=== PATIENT | male | born 1960 | race African-American/Black ===

== ENCOUNTER 2017-04-26 09:27 | Emergency (ER) | payer OTHER ==
[~2017-04-26] VITALS: Ht 175.3 cm; Wt 91.8 kg
[2017-04-26 09:28] VITALS: BP 118/78
[2017-04-26] MEDS ORDERED: diabetes med (09:57)
== END 2017-04-26 10:52 | disposition home or self-care (01) ==
LOC: ED 10:49
DX: J20.9 Acute bronchitis, unspecified (principal)
CPT/HCPCS: 71020; 99284

== ENCOUNTER 2018-06-15 08:19 | Emergency (ER) | payer OTHER ==
[~2018-06-15] VITALS: Ht 177.8 cm; Wt 88.0 kg
[~2018-06-15 08:19] MED LIST: diabetes med
[2018-06-15] MEDS ORDERED: OXYcodone/APAP 5/325MG TABLET ONE (08:55)
[2018-06-15] MEDS ORDERED: OXYcodone/APAP 5/325MG TABLET PO ONE (09:00)
[2018-06-15 10:09] VITALS: BP 134/81
== END 2018-06-15 10:12 | disposition home or self-care (01) ==
LOC: ED 09:45
DX: G89.11 Acute pain due to trauma (principal); N48.89 Other specified disorders of penis; Z85.46 Personal history of malignant neoplasm of prostate; F17.200 Nicotine dependence, unspecified, uncomplicated
CPT/HCPCS: 76870; 93975; 99284

== ENCOUNTER 2018-10-08 09:18 | Emergency (ER) | payer SELFPAY ==
[~2018-10-08] VITALS: Ht 175.3 cm; Wt 99.0 kg
[2018-10-08] MEDS ORDERED: KETOROLAC 30 MG/1 ML ONE (10:41)
[2018-10-08] MEDS ORDERED: KETOROLAC 30 MG/1 ML IM ONE (11:00)
--- NOTE | 2018-10-08 12:30 | NUR ---
PT BACK FROM MRI AND REPORTS PAIN IS MUCH BETTER AFTER TORADOL.
[2018-10-08 12:53] VITALS: BP 126/82
== END 2018-10-08 14:12 | disposition home or self-care (01) ==
LOC: ED 10:17
DX: S59.902A Unspecified injury of left elbow, initial encounter (principal); Z87.891 Personal history of nicotine dependence; W01.0XXA Fall on same level from slipping, tripping and stumbling without subsequent striking against object, initial encounter; Y93.89 Activity, other specified; Y92.89 Other specified places as the place of occurrence of the external cause; Y99.8 Other external cause status
CPT/HCPCS: 29105; 73080; 73218; 96372; 99284; J1885

== ENCOUNTER 2018-10-12 11:53 | Day surgery (SDC) | payer OTHER ==
[~2018-10-12] VITALS: Ht 177.8 cm; Wt 94.2 kg
[2018-10-12] MEDS ORDERED: LISI1TAB7 PO (12:38)
[2018-10-12] MEDS ORDERED: LACTATED RINGERS 1,000 ML IV SCH (12:38)
[2018-10-12] MEDS ORDERED: SIMV40TA3 PO (12:38)
[2018-10-12 12:39] VITALS: BP 133/88
[2018-10-12] MEDS ORDERED: FENTANYL PF 250 MCG/5ML ONE (12:49)
[2018-10-12] MEDS ORDERED: MIDAZOLAM 1 MG/ML, 2ML ONE (12:49)
[2018-10-12 13:19] LABS: ALANINE AMINOTRANSFERASE 41 U/L (12-78); ALBUMIN 3.6 g/dL (3.4-5.0); ANION GAP 6 mmol/L (5-15); CALCIUM 9.1 mg/dL (8.5-10.1); CHLORIDE 109 mmol/L (98-107); CREATININE 1.01 mg/dL (0.7-1.3)
[2018-10-12 13:21] LABS: ALKALINE PHOSPHATASE 38 U/L (45-117); BILIRUBIN,TOTAL 0.3 mg/dL (0.2-1.0); TOTAL PROTEIN 7.1 g/dL (6.4-8.2)
[2018-10-12] MEDS ORDERED: BUPIVACAINE/PF 0.25% ONE (13:56)
[2018-10-12] MEDS ORDERED: EPINEPHRINE 1 MG/ML, 1ML ONE (13:56)
[2018-10-12] MEDS ORDERED: ROCURONIUM 10MG/ML,5ML ONE (14:10)
[2018-10-12] MEDS ORDERED: CEFAZOLIN 1,000 MG ONE (14:10)
[2018-10-12] MEDS ORDERED: PROPOFOL 10 MG/ML, 20ML ONE (14:10)
[2018-10-12] MEDS ORDERED: SUCCINYLCHOLINE 20 MG/ML, 10ML ONE (14:10)
[2018-10-12] MEDS ORDERED: ONDANSETRON 2MG/ML, 2ML ONE (14:10)
[2018-10-12] MEDS ORDERED: DEXAMETHASONE 4 MG/ML, 1ML ONE (14:10)
[2018-10-12] MEDS ORDERED: OXYcodone 5 MG/5 ML ORAL.SOL UDC ONE (15:52)
[2018-10-12] MEDS ORDERED: FENTANYL PF 100 MCG/2ML ONE (15:52)
[2018-10-12] MEDS ORDERED: FENTANYL PF 100 MCG/2ML IV PRN (16:00)
[2018-10-12] MEDS ORDERED: DIAZEPAM 5 MG/ML, 2ML IVPush PRN (16:00)
[2018-10-12] MEDS ORDERED: ONDANSETRON ODT 8 MG PO PRN (16:00)
[2018-10-12] MEDS ORDERED: ACETAMINOPHEN 325 MG TABLET PO PRN (16:00)
[2018-10-12] MEDS ORDERED: ONDANSETRON 2MG/ML, 2ML IV PRN (16:00)
[2018-10-12] MEDS ORDERED: OXYcodone 5 MG/5 ML ORAL.SOL UDC PO PRN (16:00)
[2018-10-12] MEDS ORDERED: HYDROmorphone 2 MG/ML, 1ML IVPush PRN (16:00)
[2018-10-12] MEDS ORDERED: PROMETHAZINE 25 MG/ML, 1ML IV PRN (16:00)
[2018-10-12] MEDS ORDERED: HYDROmorphone 2 MG/ML, 1ML ONE (16:05)
[2018-10-12] MEDS ORDERED: LORazepam 2 MG/ML, 1ML ONE (16:12)
[2018-10-12] MEDS ORDERED: LORazepam 2 MG/ML, 1ML IVPush PRN (16:30)
== END 2018-10-12 18:30 | disposition home or self-care (01) ==
LOC: OUT 11:53
PROVIDERS: ATTEND Orthopaedic Surgery
DX: S46.312A Strain of muscle, fascia and tendon of triceps, left arm, initial encounter (principal); I10 Essential (primary) hypertension; E78.5 Hyperlipidemia, unspecified; X58.XXXA Exposure to other specified factors, initial encounter; Y93.89 Activity, other specified; Y92.89 Other specified places as the place of occurrence of the external cause; Y99.8 Other external cause status
CPT/HCPCS: 24342; 36415; 64415; 80053; C1713; J0171; J0330; J0690; J1100; J1170; J2060; J2250; J2405; J2704; J3010; J3490

== ENCOUNTER 2021-02-21 09:28 | Emergency (ER) | payer OTHER ==
[~2021-02-21] VITALS: Ht 177.8 cm; Wt 88.0 kg
[~2021-02-21 09:28] MED LIST changes: +LISI1TAB20 PO; +SIMV40TA20 PO
[2021-02-21] MEDS ORDERED: ALBUTEROL SULFATE 2.5 MG/3 ML ONE ×2 (09:47→10:02)
[2021-02-21] MEDS ORDERED: MAGNESIUM SULFATE PMX 2GM/50ML 50 ML ONE (09:51)
[2021-02-21] MEDS ORDERED: methylPREDNISolone SOD SUCC 125 MG/2 ML ONE (09:54)
[2021-02-21] MEDS ORDERED: SODIUM CHLORIDE 0.9% 1,000ML IVBOLUS ONE (10:00)
[2021-02-21] MEDS ORDERED: ALBUTEROL SULFATE 2.5 MG/3 ML NPPB ONE (10:00)
[2021-02-21] MEDS ORDERED: methylPREDNISolone SOD SUCC 125 MG/2 ML IVPush ONE (10:00)
[2021-02-21] MEDS ORDERED: ALBUTEROL/IPRATROPIUM 2.5MG/0.5MG, 3 ML NEB ONE (10:00)
[2021-02-21] MEDS ORDERED: MAGNESIUM SULFATE PMX 2GM/50ML 50 ML IV ONE ×2 (10:00→10:30)
[2021-02-21] MEDS ORDERED: ALBUTEROL/IPRATROPIUM 2.5MG/0.5MG, 3 ML ONE (10:02)
--- NOTE | 2021-02-21 10:21 | NUR ---
PT W/C/O "I CANT BREATH, HAVING AN ASTHMA ATTACK. (NO HX OF ASTHMA) WOKE UP FINE THIS AM AND IT STARTED RESTRICTING" RA SPO2 60'S PT TO ROOM 41, GIVEN BREATHING TREATMENTS AND MEDICATED PER EMAR. ATTACHED TO ALL MONITORS. DR. GOMEZ EVALUATED. RT AT BEDSIDE GIVING ANOTHER BREATHING TREATMENT.
[2021-02-21] MEDS ORDERED: ALBUTEROL 0.5%, 20ML ONE (10:28)
[2021-02-21 10:29] LABS: BASOPHILS % (AUTO) 1 % (0-1); EOSINOPHILS % (AUTO) 14 % (1-7); LYMPHOCYTES % (AUTO) 26 % (22-44); MEAN CORPUSCULAR HGB CONC 32.5 g/dL (33.2-36.2); MEAN PLATELET VOLUME 8.7 fL (7.4-10.4); MONOCYTES % (AUTO) 11 % (2-9); NEUTROPHILS % (AUTO) 48 % (42-75); PLATELET COUNT 225 x10^3/uL (130-400); RED BLOOD COUNT 5.97 x10^6/uL (4.38-5.82); RED CELL DISTRIBUTION WIDTH 15.9 % (9.4-14.8)
[2021-02-21] MEDS ORDERED: ALBUTEROL 0.5%, 20ML NPPBCONT PRN (10:30)
[2021-02-21] MEDS ORDERED: ALBUTEROL 0.5%, 20ML NPPBCONT ONE (10:30)
--- NOTE | 2021-02-21 10:33 | NUR ---
PT ON CONTINOUS NEB AT 10 L STARTED BY RN.
[2021-02-21 10:37] LABS: ANION GAP 5 mmol/L (5-15); CALCIUM 9.1 mg/dL (8.5-10.1); CHLORIDE 104 mmol/L (98-107); CREATININE 1.17 mg/dL (0.7-1.3)
[2021-02-21 11:03] VITALS: BP 135/85
--- NOTE | 2021-02-21 11:04 | NUR ---
PT RESTING IN BED. VSS. NADN. BREATHING OBSERVED TO BE LESS LABORED.
--- NOTE | 2021-02-21 11:50 | NUR ---
PT TOOK OFF BREATHING TREATMENT AND EXPRESSED TO THIS RN AND RT THAT HE WANTS TO GO. DR. GOMEZ INFORMED AND DISCUSSED THAT IT IS NOT RECOMMENDED TO LEAVE AMA. PT INSISTANT ON LEAVING. PT EDUCATED ON THE RISKS OF LEAVING AND WHAT IT MEANS TO LEAVE AMA. PT STATED HE UNDERSTOOD. PT SIGNED AMA FORM. LEFT WITH STEADY GAIT AND ALL BELONGINGS TO D/C
== END 2021-02-21 11:53 | disposition left against medical advice (07) ==
LOC: ED 10:27
DX: J96.01 Acute respiratory failure with hypoxia (principal); J98.01 Acute bronchospasm; Z87.891 Personal history of nicotine dependence; Z85.46 Personal history of malignant neoplasm of prostate
CPT/HCPCS: 36415; 71045; 80048; 85025; 94640; 94644; 96365; 96366; 96375; 99291; J2930; J3475; J7030; J7613